=== PATIENT | female | born 1970 | race Caucasian/White ===

== ENCOUNTER 2021-01-06 09:20 | Emergency (ER) | payer BC ==
[~2021-01-06] VITALS: Ht 162.6 cm; Wt 103.7 kg
[2021-01-06] MEDS ORDERED: LEVO2TA PO (09:31)
[2021-01-06 09:39] VITALS: BP 150/91
[2021-01-06] MEDS ORDERED: TETRACAINE 0.5% OPHTH SOLN 4ML OD ONE (09:40)
[2021-01-06] MEDS ORDERED: FLUORESCEIN OPHTH 1 MG STRIP OD ONE (09:40)
[2021-01-06] MEDS ORDERED: OCUF0.25 OD (10:14)
== END 2021-01-06 10:39 | disposition home or self-care (01) ==
LOC: M ED 09:20
DX: S05.01XA Injury of conjunctiva and corneal abrasion without foreign body, right eye, initial encounter (principal); W22.8XXA Striking against or struck by other objects, initial encounter; Y92.018 Other place in single-family (private) house as the place of occurrence of the external cause; E03.9 Hypothyroidism, unspecified; Z98.84 Bariatric surgery status; Z79.890 Hormone replacement therapy; Z88.5 Allergy status to narcotic agent